=== PATIENT | female | born 1995 | race Caucasian/White ===

== ENCOUNTER 2017-03-19 20:40 | Emergency (ER) | payer MEDICAID ==
[2017-03-19 20:49] VITALS: BMI 36.3
[2017-03-19 20:54] VITALS: RESP 18; TEMP 98.4; O2SAT 98
--- NOTE | 2017-03-19 21:20 | ED PDOC ---
Arrival/HPI - General Chief Complaint: ENT Problem Time Seen by Provider: 03/19/17 21:08 Historian: Patient - History of Present Illness Narrative History of Present Illness (Text): 03/19/17 21:14 22yr old female presents today with 3 days of nasal congestion, sore throat, cough with subjective fevers. pt c/o decreased hearing in right ear. described clogged sensation like under water. pt c/o nasal congestion. c/o pain to right ear. pt c/o sore throat. no vomiting/diarrhea. + sick contacts. no medications have been taken for pain. pt states incident of hearing loss occurred 1 hour prior to arrival. pt states she heard a cracking sound and then couldnt hear out of the right ear. pt states she is still hearing a cracking sound. Time/Duration: 1 hour Symptom Onset: Sudden Symptom Course: Unchanged Past Medical History - Provider Review Nursing Documentation Reviewed: Yes - Travel History Have you recently traveled outside [place] w/in the past 3 mons?: No - Infectious Disease Hx of Infectious Diseases: None - Psychiatric Hx Substance Use: No - Anesthesia Hx Anesthesia: No Family/Social History - Physician Review Nursing Documentation Reviewed: Yes Family/Social History: Unknown Family HX Smoking Status: Never Smoked Hx Alcohol Use: No Hx Substance Use: No Allergies/Home Meds Allergies/Adverse Reactions: Allergies No Known Allergies Allergy (Verified 03/19/17 20:49) Review of Systems - Review of Systems Constitutional: Fevers. absent: Fatigue ENT: Hearing Changes, Sore Throat, Sinus Congestion, Other (ear pain) Respiratory: Cough. absent: SOB Cardiovascular: absent: Chest Pain Gastrointestinal: absent: Abdominal Pain, Nausea, Vomiting Musculoskeletal: absent: Arthralgias Skin: absent: Rash, Pruritis Neurological: absent: Headache, Dizziness Psychiatric: absent: Anxiety, Depression Physical Exam Vital Signs Reviewed: Yes Vital Signs Temp Pulse Resp BP Pulse Ox 03/19/17 20:53 98.4 F 86 18 125/80 98 Temperature: Afebrile Blood Pressure: Normal Pulse: Regular Respiratory Rate: Normal Appearance: Positive for: Well-Appearing, Non-Toxic, Comfortable Pain Distress: None Mental Status: Positive for: Alert and Oriented X 3 - Systems Exam Head: Present: Atraumatic Ears: Present: Erythema (right TM; + erythema; ? TM perforation; no pinna pull or tragal tug, no canal edema or erythema; no mastoid tenderness), Normal Canal. No: NORMAL TM Mouth: Present: Moist Mucous Membranes, Normal Lips, Normal Tounge. No: Drooling, Trismus Pharnyx: Present: Normal. No: ERYTHEMA, EXUDATE, TONSILS ENLARGED, Uvular Deviation, Muffled/Hoarse Voice Nose (External): Present: Atraumatic Nose (Internal): Present: Normal Inspection, Clear Mucous. No: Septal Hematoma Neck: Present: Normal Range of Motion, Trachea Midline. No: Meningeal Signs, Lymphadenopathy Respiratory/Chest: Present: Clear to Auscultation, Good Air Exchange. No: Respiratory Distress, Accessory Muscle Use Cardiovascular: Present: Regular Rate and Rhythm, Normal S1, S2. No: Murmurs Abdomen: No: Tenderness Back: Present: Normal Inspection Upper Extremity: Present: Normal ROM Lower Extremity: Present: Normal ROM Neurological: Present: GCS=15, Speech Normal Skin: Present: Warm, Dry, Normal Color. No: Rashes Psychiatric: Present: Alert, Oriented x 3 Medical Decision Making ED Course and Treatment: 03/19/17 21:22 Patient is nontoxic well-appearing in no distress. Vital signs are stable. Motrin Zithromax pt with complete loss of hearing in right ear; ? concern for TM perforation; but limited visualization due to cerumen. pt was seen and evaluated by dr. waterman case discussed with ENT specialist dr. vidal; discussed case in depth; advised giving 20mg of prednisone 1 tablet 3 times daily and f/u in the office. I advised follow up with the ENT specialist tomorrow. advised taking medications as prescribed. I advised increase fluids and immediate return if symptoms worsen persist or if new symptoms develop. stressed importance of immediate f/u. Patient verbalizes understanding of discharge instructions and need for immediate followup. all aspects of this case were discussed the attending of record. IMPRESSION; cough, ear pain, nasal congestion, hearing loss Motrin one tablet every 6 hours as needed for pain Zithromax one tablet once daily x4 days FLonase; 2 sprays each nostril once daily. Prednisone; 1 tablet 3 times daily x 5 days Increase fluids Follow up with the ENT specialist SOON POSSIBLE. Followup with primary care physician the next 2 days Return if symptoms worsen persist or if new symptoms develop - Medication Orders Current Medication Orders: Discontinued Medications Azithromycin (Zithromax) 500 mg PO STAT STA PRN Reason: Protocol Stop: 03/19/17 21:11 Last Admin: 03/19/17 21:31 Dose: 500 mg Ibuprofen (Motrin Tab) 600 mg PO STAT STA Stop: 03/19/17 21:11 Last Admin: 03/19/17 21:31 Dose: 600 mg MAR Pain/Vitals Document 03/19/17 21:31 KATINA [id number] Pain Reassessment Is This A Pain ReAssessment? No Sleep Is patient sleeping during reassessment? No Presence of Pain Presence of Pain Yes Disposition/Present on Arrival - Present on Arrival Any Indicators Present on Arrival: No History of DVT/PE: No History of Uncontrolled Diabetes: No Urinary Catheter: No History of Decub. Ulcer: No History Surgical Site Infection Following: None - Disposition Have Diagnosis and Disposition been Completed?: Yes Diagnosis: Cough, Hearing loss, Nasal congestion Disposition: HOME/ ROUTINE Disposition Time: 22:02 Patient Plan: Discharge Patient Problems: Current Active Problems Problem Status Onset Cough Acute Hearing loss Acute Nasal congestion Acute Condition: GOOD Discharge Instructions (ExitCare): Acute Cough (ED), Earache (ED) Additional Instructions: Motrin one tablet every 6 hours as needed for pain Zithromax one tablet once daily x4 days FLonase; 2 sprays each nostril once daily. Prednisone; 1 tablet 3 times daily x 5 days Increase fluids Follow up with the ENT specialist SOON POSSIBLE. Followup with primary care physician the next 2 days Return if symptoms worsen persist or if new symptoms develop Prescriptions: Azithromycin [Zithromax] 250 mg PO DAILY #4 tab Fluticasone Nasal [Flonase] 2 spr NS DAILY #1 spr Ibuprofen [Motrin] 600 mg PO Q6H PRN #20 tab PRN Reason: pain/fever reduction Loratadine [Claritin] 10 mg PO DAILY #30 tab predniSONE [predniSONE Tab] 1 tab PO TID #12 tab Referrals: Cristofer Vidal DO [Doctor Osteopathy] - Follow up with primary [facility] [Outside] - Follow up with primary Jillian Rodriguez MD [Staff Provider] - Follow up with primary Forms: [employer] ([place]), WORK NOTE
[2017-03-20 02:52] VITALS: BP 120/76; PULSE 82
== END 2017-03-19 22:32 | disposition home or self-care (01) ==
LOC: ED 20:40
DX: H91.91 Unspecified hearing loss, right ear (principal); R05 Cough; R09.81 Nasal congestion

== ENCOUNTER 2018-08-01 23:48 | Emergency (ER) | payer SELFPAY ==
[2018-08-01 23:49] VITALS: BMI 36.3
[2018-08-02] VITALS: RESP 18; TEMP 97.8
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
[2018-08-02 01:34] VITALS: BP 127/86; PULSE 75; O2SAT 100
== END 2018-08-02 01:33 | disposition home or self-care (01) ==
LOC: ED 23:48
DX: M54.2 Cervicalgia (principal); V89.2XXA Person injured in unspecified motor-vehicle accident, traffic, initial encounter; Y92.410 Unspecified street and highway as the place of occurrence of the external cause
CPT/HCPCS: 81025; 96372; 99285; J1885